=== PATIENT | female | born 1975 | race Caucasian/White ===

== ENCOUNTER → 2019-03-17 | Outpatient (CLI) | payer BC ==
[~2019-03-17] MED LIST: CELEXA40 MG PO; CLARITIN 1010 MG/TAB PO; IBU-6600 MG PO; MOTRIN 800800 MG/TAB PO; PERCOCET 325 MG1 TA2 PO; PRENATAL1 TA1 PO; SENOKOT S 50 MG1 TAB PO; SLOW FE45 MG PO
== END ==
LOC: DIA.ED 15:10
DX: O24.419 Gestational diabetes mellitus in pregnancy, unspecified control (principal); Z3A.28 28 weeks gestation of pregnancy
CPT/HCPCS: G0108

== ENCOUNTER 2019-05-18 05:33 | Inpatient (IN) | payer BC ==
[~2019-05-18] VITALS: Ht 162.7 cm; Wt 89.1 kg
[2019-05-18] VITALS (18 sets, daily range): BP systolic 11–133; BP diastolic 64–86; PULSE 63–106; TEMP 97.7–98.8
--- NOTE | 2019-05-18 05:40 | NUR ---
Pt arrived ambulatory on unit escorted by for scheduled repeat . Pt denies any contractions, leaking of fluid, vaginal bleeding and reports normal movement. EFM and toco monitors started. Vital signs WNL. IV started, labs obtained and LR infusing per order.
[2019-05-18 06:30] LABS: BASO % 0.2 % (0.0-2.0); EOS # 0.1 (0.0-0.7); EOS % 1.2 % (0-4.0); GRAN % 70.5 % (42.2-75.2); HEMOGLOBIN 12.1 g/dl (12.5-16.0); LYMPH # 1.5 (1.2-3.4); LYMPH % 17.3 % (20.0-51.0); MEAN CELL VOLUME 89 fl (80.0-100.0); MEAN CORPUSCULAR HEMOGLOBIN 30 pg (27.0-31.0); MEAN CORPUSCULAR HGB CONC 34 g/dl (33.0-37.0); MEAN PLATELET VOLUME 10.1 fl (7.4-10.4); MONO # 0.9 (0.1-0.6); MONO % 10.2 % (1.7-9.3); PLATELET COUNT 249 K/mm3 (130-400); RED BLOOD COUNT 4.03 M/mm3 (4.10-5.30); REDCELL DISTRIBUTION WIDTH-CV 14.4 % (11.5-14.5)
[2019-05-18] MEDS ORDERED: CELEXA10 MG (06:36)
--- NOTE | 2019-05-18 07:25 | NUR ---
Patient ambulatory to OR for scheduled repeat .
--- NOTE | 2019-05-18 16:15 | NUR ---
Pt up to bathroom with assist. Rodriguez catheter removed. Pericare instructions given. New pad on and clothes on. Pt ambulates to nursery to hold infant. Denies any pain. Ambulates without difficulty.
[2019-05-19 02:30] VITALS: BP 115/60; PULSE 70; TEMP 99
[2019-05-19 06:55] VITALS: BP 123/74; PULSE 80; TEMP 98.1
[2019-05-19] MEDS ORDERED: MOTRIN 800800 MG/TAB PO (08:27)
[2019-05-19] MEDS ORDERED: PERCOCET 325 MG1 TA2 PO (08:27)
--- NOTE | 2019-05-19 10:01 | NUR ---
Initial visit; Mom thanked Strategic Planning Analyst for offering congratulations and God's blessings for the of her son. Strategic Planning Analyst thanked family for choosing [facility].
[2019-05-19 15:25] VITALS: BP 130/77; PULSE 91; TEMP 98.2
[2019-05-19 22:10] VITALS: BP 127/57; PULSE 82; TEMP 99
[2019-05-20 08:33] VITALS: BP 126/73; PULSE 82; TEMP 98.2
--- NOTE | 2019-05-20 10:15 | NUR ---
Baby was having a hearing test.
[2019-05-20 16:00] VITALS: BP 122/66; PULSE 87; TEMP 99.2
[2019-05-20 20:00] VITALS: BP 118/65; PULSE 80; TEMP 98.5
[2019-05-21 07:30] VITALS: BP 124/72; PULSE 80; TEMP 98
--- NOTE | 2019-05-21 07:30 | NUR ---
Rests in bed, alert. Ibuprofen 800 mg given as ordered. Denies any other needs at this time.
--- NOTE | 2019-05-21 09:29 | NUR ---
Rests in bed, alert. Visits with family. Denies any needs at this time.
--- NOTE | 2019-05-21 10:30 | NUR ---
Discharge instructions given, verbalizes understanding.
== END 2019-05-21 10:48 | disposition home or self-care (01) | DRG 788 ==
LOC: OB 05:33
PROVIDERS: ADMIT Obstetrics & Gynecology
PROC: 10D00Z1 Extraction of Products of Conception, Low, Open Approach (ICD-10-PCS; principal; 2019-05-18)
DX: O34.211 Maternal care for low transverse scar from previous cesarean delivery (principal); O32.1XX0 Maternal care for breech presentation, not applicable or unspecified; Z3A.39 39 weeks gestation of pregnancy; Z37.0 Single live birth; O24.420 Gestational diabetes mellitus in childbirth, diet controlled; O99.344 Other mental disorders complicating childbirth; F41.9 Anxiety disorder, unspecified; F32.9 Major depressive disorder, single episode, unspecified
CPT/HCPCS: J0690; J1885; J2210; J2370; J2405; J2590; J7120

== ENCOUNTER → 2023-08-03 | Outpatient (CLI) | payer OTHER ==
[2004-12-22 09:27] VITALS: BP 127/66; PULSE 99
[~2023-08-03] MED LIST changes: +CELEXA10 MG
== END ==
LOC: MC.RAD 11:00
DX: Z12.31 Encounter for screening mammogram for malignant neoplasm of breast (principal)